=== PATIENT | male | born 1980 | race African-American/Black ===

== ENCOUNTER 2020-03-10 16:29 | Inpatient (IN) | payer OTHER ==
[~2020-03-10] VITALS: Ht 175.3 cm; Wt 87.0 kg
[~2020-03-10 16:29] MED LIST: BACLOFEN 10 MG10 MG; EXFORGE; IBUPROFEN 800800 M1 PO; MOBIC7.5 M1 PO; TRAMADOL 50 MG50 MG PO; ZPAK PO
[2020-03-10 16:31] VITALS: BP 218/143
[2020-03-10 17:10] LABS: ABSOLUTE NEUTROPHILS 5.8 thou/uL (1.4-8.2); BASOPHILS 0.7 % (0.0-2.0); EOSINOPHILS 3.5 % (0.0-3.0); HEMATOCRIT 42.9 % (42.0-52.0); HEMOGLOBIN 14.3 gm/dL (14.0-18.0); LYMPHOCYTES 29.9 % (24.0-44.0); MCH 30.6 pg (26.0-34.0); MCHC 33.3 g/dL (28.0-37.0); MONOCYTES 4.5 % (1.0-8.0); PLATELET COUNT 241 thou/uL (150-400); POLYS 61.4 % (36.0-66.0); RBC 4.67 mil/uL (4.50-6.00); WBC 9.5 thou/uL (4.0-11.0)
[2020-03-10 17:13] LABS: CALCIUM 9.5 mg/dL (8.5-10.1); CREATININE 1.4 mg/dL (0.7-1.3); POTASSIUM 4.1 mmol/L (3.5-5.1)
[2020-03-10 17:24] LABS: ALBUMIN 3.7 g/dL (3.4-5.0); TOTAL BILIRUBIN 0.3 mg/dL (0.2-1.0); TOTAL PROTEIN 7.6 g/dL (6.4-8.2); TROPONIN-I 0.45 ng/mL (<0.06)
[2020-03-10 17:32] LABS: URINE BILIRUBIN NEGATIVE (Negative); URINE BLOOD TRACE (Negative); URINE CLARITY CLEAR; URINE COLOR YELLOW; URINE GLUCOSE-RANDOM* NEGATIVE (Negative); URINE KETONES NEGATIVE (Negative); URINE LEUKOCYTES-REFLEX NEGATIVE (Negative); URINE NITRITE-REFLEX NEGATIVE (Negative); URINE PROTEIN (DIPSTICK) NEGATIVE (Negative); URINE SPECIFIC GRAVITY 1.015 (1.005-1.035)
[2020-03-10 17:43] LABS: AMP/METHAMP Negative (Negative); BARBITURATES Negative (Negative); BENZODIAZEPINES Negative (Negative); COCAINE Negative (Negative); METHADONE POSITIVE (Negative); OPIATES POSITIVE (Negative); PCP Negative (Negative)
[2020-03-10] MEDS ORDERED: LISINOPRIL10 MG PO (17:47)
[2020-03-10] MEDS ORDERED: OXYCODONE HCL E10 MG PO (17:47)
[2020-03-10] MEDS ORDERED: AMLODIPINE BESY10 MG PO (17:48)
[2020-03-10] MEDS ORDERED: CARVEDILOL12.5 MG PO (17:48)
[2020-03-10] MEDS ORDERED: HYDROCHLOROTHIA25 M2 PO (17:48)
[2020-03-10 21:22] LABS: CHOLESTEROL 176 mg/dL (<200); HDL CHOLESTEROL 35 mg/dL (>40); LDL CHOLESTEROL 119 mg/dL (<100); TRIGLYCERIDE 113 mg/dL (<150); VLDL 23 mg/dL (<40)
[2020-03-11 00:07] VITALS: BP 123/79
[2020-03-11 00:50] VITALS: BP 142/90
[2020-03-11 01:15] VITALS: BP 150/92
--- NOTE | 2020-03-11 03:15 | NUR ---
PT ADMITTED INTO THE UNIT WITH C/O FLANK PAIN RIGHT AND LEFT AND HYPERTENSIVE CRISIS.PT IS A/O X4.PT IS UP AD JULIO.PT IS ON TELE WITH NSR.PT DENIED N/V/D AND HAD AN ELEVATED TROPONIN.IV ACCESS ON RT AND LT AC AND HAS NS AT 75CC/HR.PT HAS A HISTORY OF KIDNEY STONES.PT ON BP MEDICATIONS AND PAIN MED.PT REFUSED MORPHINE THAT IT DOOESNT RELIEVE HIS PAIN.WILL CONTINUIE TO MONITOR PER POC
[2020-03-11 05:28] LABS: HEMOGLOBIN 13.1 gm/dL (14.0-18.0); MCH 30.1 pg (26.0-34.0); MCHC 32.7 g/dL (28.0-37.0); RBC 4.35 mil/uL (4.50-6.00); RDW 16.1 % (10.5-14.5); WBC 8.7 thou/uL (4.0-11.0)
[2020-03-11 05:53] LABS: CALCIUM 9.5 mg/dL (8.5-10.1); CREATININE 1.3 mg/dL (0.7-1.3); MAGNESIUM 2.1 mg/dL (1.8-2.4); POTASSIUM 4.4 mmol/L (3.5-5.1)
[2020-03-11 07:36] VITALS: BP 135/81
--- NOTE | 2020-03-11 07:38 | EKG ---
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1980 Requested By: Natalie Cox Order Number: [id number] MD: Kirk Ashby Measurements Intervals [place] Rate: 90 P: 70 AK: 141 QRS: 105 QRSD: 89 T: -62 QT: 385 QTc: 471 Interpretive Statements Sinus rhythm LAE, consider biatrial enlargement Abnormal T, consider ischemia, lateral leads No previous ECG available for comparison Electronically Signed On 03-11-2020 7:37:56 PARIMUTUEL CLERK by Kirk Ashby [email or web address] <ELECTRONICALLY SIGNED> By: Kirk Ashby MD, FACC 03/11/20 0737 1752 175 Kirk Ashby MD, [facility] /EPI
--- NOTE | 2020-03-11 09:03 | EKG ---
[facility] [place] [address] ELECTROCARDIOGRAM REPORT Name: ANNAMARIA DOBBS Room #: 456-P ADM IN M.R.#: [id number] Admission: 03/10/20 Attend Phys: Carol Sepulveda MD Discharge: Date of : 80 Report #: [id number] THIS REPORT FOR: cc: Audi Pringle Sr, MD, Otis S Sr MD Lundgren, Craig H. MD [facility] ~ THIS REPORT FOR: //name// [facility] Test Date: 2020-03-11 Test Time: 08:14:16 Pat Name: ANNAMARIA DOBBS Department: Room: 456 P Gender: M Wardsperson: HARMAN : 1980 Requested By: Isabela Wilhelm Order Number: [id number] MD: Chase Gautam Measurements Intervals [place] Rate: 68 P: 72 GA: 146 QRS: 108 QRSD: 94 T: -65 QT: 445 QTc: 474 Interpretive Statements Sinus rhythm Probable left atrial enlargement Right axis deviation Abnormal R-wave progression, late transition T wave abnormality, consider lateral ischemia Compared to ECG 03/10/2020 17:52:29 No significant change was found Electronically Signed On 03-11-2020 9:03:21 MANAGER TRANSMISSION by Chase Gautam [email or web address] <ELECTRONICALLY SIGNED> By: Chase Gautam MD, FACC 03/11/20902 3 3 Chase Gautam MD, FAC /EPI
--- NOTE | 2020-03-11 14:19 | NUR ---
Received awake on bed. Due medications given as prescribed, able to swallow meds w/o difficulty. On room air. Vital signs stable. A+Ox4. Vital signs stable. On telemetry; no complains and signs of chest pain, crushing sensation and heaviness. On heart healthy diet- tolerating well; no nausea, no vomiting and no abdominal pain noted. Continent of bowel and bladder, able to go to the toilet independently. With SL at L AC; with NS at 75cc/hr, infusing well at R AC; dressing C/D/I. Complained of flank pain, due PRN pain meds given as prescribed. To continue monitoring patient. Visited by relative today, update given.
--- NOTE | 2020-03-11 15:32 | 2DMMODE ---
[facility] [place] [address] 2 D/M-MODE ECHOCARDIOGRAM Name: ANNAMARIA DOBBS Room #: 456-P ADM IN M.R.#: [id number] Admission: 03/10/20 Attend Phys: Carol Sepulveda MD Discharge: Date of : 80 Report #: [id number] THIS REPORT FOR: cc: Audi Pringle Sr, MD, Otis S Sr MD Lundgren, Craig H. MD [facility] ~ APPROVED REPORT Study performed: 03/11/2020 13:01:26 EXAM: Comprehensive 2D, Doppler, and color-flow Echocardiogram Patient Location: Bedside Room #: 456 BSA: 1.98 HR: 64 bpm BP: 135/81 mmHg Rhythm: NSR Other Information Study Quality: Good Indications HTN, elevated troponin, flank pain. 2D Dimensions RVDd: 41.71 mm IVSd: 15.69 (7-11mm) LVOT Diam: 20.72 (18-24mm) LVDd: 47.13 mm PWd: 14.00 (7-11mm) LVDs: 31.65 (25-40mm) Aortic Root: 26.95 mm Volumes Left Atrial Volume (Systole) Single Plane 4CH: 57.12 mL Single Plane 2CH: 69.53 mL LA ESV Index: 34.00 mL/m2 Aortic Valve AoV Peak Garrett.: 1.21 m/s AO Peak Gr.: 5.83 mmHg LVOT Max P.33 mmHg LVOT Max V: 1.04 m/s CELI Vmax: 2.90 cm2 [facility] [address] [place] [address] 2 D/M-MODE ECHOCARDIOGRAM Name: ANNAMARIA DOBBS Room #: 456-P [facility] IN ..#: [id number] Admission: 03/10/20 Attend Phys: Carol Sepulveda MD Discharge: Date of : 80 Report #: [id number] Mitral Valve E/A Ratio: 1.4 MV Decel. Time: 185.84 ms MV E Max Garrett.: 0.98 m/s MV A Garrett.: 0.70 m/s MV PHT: 53.90 ms IVRT: 129.18 ms Pulmonary Valve PV Peak Garrett.: 1.19 m/s PV Peak Gr.: 5.62 mmHg Pulmonary Vein P Vein S: 0.74 m/s P Vein A: 0.31 m/s P Vein D: 0.42 m/s P Vein A Dur.: 175.3 msec P Vein S/D Ratio: 1.76 Tricuspid Valve TR Peak Garrett.: 2.23 m/s RAP Estimate: 5.00 mmHg TR Peak Gr.: 20.00 mmHg PA Pressure: 25.00 mmHg Left Ventricle The left ventricle is normal size. There is global hypokinesis of the left ventricle. Moderate concentric left ventricular hypertrophy. Left ventricular systolic function is mildly decreased. LVEF is 45%. Moderate diastolic dysfunction is present (pseudonormal filling). Right Ventricle The right ventricle is normal size. The right ventricular systolic function is normal. Atria Left atrium is mildly dilated. Atrial septal aneurysm. Shunting in the region of the fossa ovalis consistent with a patent foramen ovale The right atrium size is normal. Aortic Valve The aortic valve is normal in structure. Trace aortic regurgitation. There is no aortic valvular stenosis. Mitral Valve The mitral valve is normal in structure. Trace mitral regurgitation. No evidence of mitral valve stenosis. Tricuspid Valve [facility] [address] [place] [address] 2 D/M-MODE ECHOCARDIOGRAM Name: DILIAANNAMARIA Room #: 456-P [facility] IN .R.#: [id number] Admission: 03/10/20 Attend Phys: Carol Sepulveda MD Discharge: Date of : [birth year] Report #: [id number] The tricuspid valve is normal in structure. Trace tricuspid regurgitation. Estimated PAP is 25mmHg. Pulmonic Valve The pulmonary valve is normal in structure. Mild pulmonic regurgitation. Great Vessels The aortic root is normal in size. The ascending aorta is normal in size. IVC is normal in size and collapses >50% with inspiration. Pericardium There is no pericardial effusion. <Conclusion> Left ventricular systolic function is mildly decreased. There is global hypokinesis of the left ventricle. Moderate concentric left ventricular hypertrophy. Moderate diastolic dysfunction Atrial septal aneurysm. Shunting in the region of the fossa ovalis consistent with a patent foramen ovale Left atrium is mildly dilated. The aortic valve is normal in structure. Trace aortic regurgitation, no stenosis. The mitral valve is normal in structure. Trace mitral regurgitation. Trace tricuspid regurgitation. Estimated pulmonary artery pressure of 25mmHg. There is no pericardial effusion. <ELECTRONICALLY SIGNED> By: Chase Gautam MD, FACC 03/11/20 153 31 31 Chase Gautam MD, FACC /INF
--- NOTE | 2020-03-11 16:09 | NUR ---
PT ADMITTED RELATED TO FLANK PAIN,ELEVATED BP. CM REVIEWED CHART AND SPOKE WITH CARE TEAM. CM CALLED AND SPOKE WITH PT OVER THE PHONE THIS DAY. PT INDICATED HE LIVES IN A DUPLEX WITH HIS KIDS AND UNCLE. HE INDICATED NO STEPS TO ENTER AND A FULL FLIGHT INSIDE. 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 NO DME OR HH HX. CM TO FOLLOW INDICATED WITH DC PLANNING.PT HAVING AN ECHO, EKG, AND BLOOD WORK DONE.
[2020-03-11 16:48] VITALS: BP 134/91
[2020-03-11 20:05] VITALS: BP 152/95
--- NOTE | 2020-03-12 02:43 | NUR ---
PT CARE ASSUMED WITH PT IN BED WATCHING TV.PT IS UP AD JULIO AND WALKDE IN THE HALLWAY.PT C/O PAIN HAS OXYCODODNE Q4H PRN FOR PAIN MANAGEMENT.WILL CONTINUE TO MONITOR PER POC
[2020-03-12] MEDS ORDERED: BENICAR40 MG PO (08:19)
[2020-03-12 08:35] LABS: CALCIUM 9.3 mg/dL (8.5-10.1); CREATININE 1.3 mg/dL (0.7-1.3)
--- NOTE | 2020-03-12 09:23 | NUR ---
PT STATES HE FEELS SOMEWHAT THE SAME YESTERDAY. WANTS TO GET PAIN UNDER CONTROL AND IS LOOKING FORWARD TO DISCHARGING TODAY
[2020-03-12] MEDS ORDERED: HYDRALAZINE 10M10 MG PO (09:25)
--- NOTE | 2020-03-12 10:00 | NUR ---
I have reviewed the student documentation.
[2020-03-12 10:28] VITALS: BP 152/98
[2020-03-12 10:32] VITALS: BP 152/98
--- NOTE | 2020-03-12 11:57 | NUR ---
Assumed pt care at 7am.Assessment completed vss but elevated bp noted. Different kind of po bp meds given as ordered with pain med.Dr Flores here,dc order noted.Dc summary compile and reviewed with pt.Rx sent to pt's pharmacy via fax.At 1045,pt dc home in accompanied by his family.
== END 2020-03-12 10:44 | disposition home or self-care (01) | DRG 281 ==
LOC: ER 16:29 → 4W 20:27 → EROBS 20:27 → 4W 03-11 00:49
PROVIDERS: Nurse Practitioner Adult Health; Nurse Practitioner Family; Physician Assistant; ADMIT Hospitalist; ATTEND Hospitalist
DX: I21.4 Non-ST elevation (NSTEMI) myocardial infarction (principal); M62.82 Rhabdomyolysis; N17.9 Acute kidney failure, unspecified; G43.909 Migraine, unspecified, not intractable, without status migrainosus; I10 Essential (primary) hypertension; I16.0 Hypertensive urgency; I12.9 Hypertensive chronic kidney disease with stage 1 through stage 4 chronic kidney disease, or unspecified chronic kidney disease; G89.29 Other chronic pain; F17.210 Nicotine dependence, cigarettes, uncomplicated; N18.9 Chronic kidney disease, unspecified; Z71.6 Tobacco abuse counseling; Z87.442 Personal history of urinary calculi; Z88.8 Allergy status to other drugs, medicaments and biological substances; Z23 Encounter for immunization
CPT/HCPCS: 10045

== ENCOUNTER → 2020-04-29 | Outpatient (CLI) | payer OTHER ==
[~2020-04-29] MED LIST changes: +AMLODIPINE BESY10 MG PO; +BENICAR40 MG PO; +CARVEDILOL12.5 MG PO; +HYDRALAZINE 10M10 MG PO; +HYDROCHLOROTHIA25 M2 PO; +LISINOPRIL10 MG PO; +OXYCODONE HCL E10 MG PO
--- NOTE | 2020-04-29 12:13 | 2DMMODE ---
[facility] [place] [address] 2 D/M-MODE ECHOCARDIOGRAM Name: DILIAANNAMARIA JR Room #: REG [facility]#: [id number] Admission: 04/29/20 Attend Phys: Ratnesh. Amado MD Discharge: Date of : 80 Report #: [id number] THIS REPORT FOR: cc: Audi Pringle Sr, MD, Otis S Sr MD Santiago, Patrick MD [facility] ~ APPROVED REPORT Study performed: 04/29/2020 10:37:23 EXAM: Comprehensive 2D, Doppler, and color-flow Echocardiogram Patient Location: Out-Patient Status: routine BSA: 2.00 HR: 55 bpm BP: 130/76 mmHg Rhythm: NSR Other Information Study Quality: Good Indications Hypertension/HDD 2D Dimensions IVSd: 14.72 (7-11mm) LVOT Diam: 22.23 (18-24mm) LVDd: 42.84 mm PWd: 16.44 (7-11mm) Ascending Ao: 22.49 (22-36mm) LVDs: 29.94 (25-40mm) Left Atrium: 34.59 (27-40mm) Aortic Root: 30.19 mm IVC: 1.70 mm Volumes Left Atrial Volume (Systole) Single Plane 4CH: 25.23 mL Single Plane 2CH: 46.13 mL LA ESV Index: 18.50 mL/m2 Aortic Valve AoV Peak Garrett.: 1.09 m/s AO Peak Gr.: 4.80 mmHg LVOT Max P.51 mmHg LVOT Max V: 0.94 m/s CELI Vmax: 3.32 cm2 [facility] [address] [place] [address] 2 D/M-MODE ECHOCARDIOGRAM Name: ANNAMARIA DOBBS JR Room #: REG [facility]#: [id number] Admission: 04/29/20 Attend Phys: Ratnesh. Amado MD Discharge: Date of : 80 Report #: [id number] Mitral Valve E/A Ratio: 1.2 MV Decel. Time: 247.75 ms MV E Max Garrett.: 0.78 m/s MV A Garrett.: 0.63 m/s MV PHT: 71.85 ms IVRT: 92.27 ms Pulmonary Valve PV Peak Garrett.: 1.10 m/s PV Peak Gr.: 4.87 mmHg Pulmonary Vein P Vein S: 0.49 m/s P Vein A: 0.31 m/s P Vein D: 0.40 m/s P Vein A Dur.: 101.5 msec P Vein S/D Ratio: 1.23 Left Ventricle The left ventricle is normal size. Moderate concentric left ventricular hypertrophy. Left ventricular systolic function is mildly decreased. LVEF is 45-50%. Right Ventricle The right ventricle is normal size. The right ventricular systolic function is normal. Atria Left atrium is dilated. Small PFO is noted. The right atrium size is normal. Aortic Valve The aortic valve is normal in structure. No aortic regurgitation is present. There is no aortic valvular stenosis. Mitral Valve The mitral valve is normal in structure. Trace mitral regurgitation. No evidence of mitral valve stenosis. Tricuspid Valve The tricuspid valve is normal in structure. . There is no tricuspid valve regurgitation noted. Pulmonic Valve The pulmonary valve is normal in structure. Mild pulmonic regurgitation. Great Vessels [facility] [place] [address] 2 D/M-MODE ECHOCARDIOGRAM Name: ANNAMARIA DOBBS Room #: [facility]#: [id number] Admission: 04/29/20 Attend Phys: Ratnesh. Amado MD Discharge: Date of : 80 Report #: [id number] The aortic root is normal in size. IVC is normal in size and collapses >50% with inspiration. Pericardium There is no pericardial effusion. <Conclusion> Normal left ventricular size Mild-Moderate concentric hypertrophy Ejection fraction 45%, mild global hypokinesis Normal right ventricular size/function Mildly dilated left atrium Color-flow Doppler study was performed of the aortic/mitral/tricuspid/pulmonary valve Trace tricuspid valve insufficiency No tricuspid valve insufficiency No pericardial effusion <ELECTRONICALLY SIGNED> By: Kirk Ashby MD, [facility] 04/29/20 1212 11 1212 Kirk Ashby MD, FACC /INF
== END ==
LOC: CV 10:06
PROVIDERS: ATTEND Internal Medicine
DX: I08.8 Other rheumatic multiple valve diseases (principal); R93.1 Abnormal findings on diagnostic imaging of heart and coronary circulation

== ENCOUNTER 2021-01-15 20:12 | Emergency (ER) | payer OTHER ==
[~2021-01-15] VITALS: Ht 175.3 cm; Wt 81.7 kg
[2021-01-15 20:16] VITALS: BP 189/117
[2021-01-15] MEDS ORDERED: LOSARTAN POTAS100 MG PO (20:20)
[2021-01-15] MEDS ORDERED: CELECOXIB200 MG PO (20:21)
[2021-01-15] MEDS ORDERED: MEDROLDOSEPACK PO (20:37)
== END 2021-01-15 20:49 | disposition home or self-care (01) ==
LOC: ER 20:12
DX: S39.012A Strain of muscle, fascia and tendon of lower back, initial encounter (principal); I10 Essential (primary) hypertension; G43.909 Migraine, unspecified, not intractable, without status migrainosus; F17.210 Nicotine dependence, cigarettes, uncomplicated; Z87.442 Personal history of urinary calculi; Z79.899 Other long term (current) drug therapy; Z79.891 Long term (current) use of opiate analgesic; Z88.8 Allergy status to other drugs, medicaments and biological substances; X58.XXXA Exposure to other specified factors, initial encounter; Y93.89 Activity, other specified; Y92.89 Other specified places as the place of occurrence of the external cause; Y99.8 Other external cause status

== ENCOUNTER 2021-05-19 10:33 | Observation (INO) | payer OTHER ==
[~2021-05-19] VITALS: Ht 190 cm; Wt 3.6 kg
[~2021-05-19 10:33] MED LIST changes: +CELECOXIB200 MG PO; +LOSARTAN POTAS100 MG PO; +MEDROLDOSEPACK PO
[2021-05-19 10:38] VITALS: BP 199/133
[2021-05-19 11:15] LABS: HEMATOCRIT 45.2 % (42.0-52.0); HEMOGLOBIN 14.8 gm/dL (14.0-18.0); MCH 29.9 pg (26.0-34.0); MCHC 32.7 g/dL (28.0-37.0); MCV 91.4 fL (80.0-100.0); RBC 4.94 mil/uL (4.50-6.00); RDW 16.1 % (10.5-14.5); WBC 7.8 thou/uL (4.0-11.0)
[2021-05-19 11:21] LABS: CALCIUM 9.5 mg/dL (8.5-10.1); CREATININE 1.3 mg/dL (0.7-1.3)
[2021-05-19 11:31] LABS: ALBUMIN 3.9 g/dL (3.4-5.0); TOTAL BILIRUBIN 0.6 mg/dL (0.2-1.0); TOTAL PROTEIN 8.1 g/dL (6.4-8.2)
--- NOTE | 2021-05-19 12:26 | EKG ---
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1980 Requested By: Gage Lamb Order Number: [id number] MD: Kirk Ashby Measurements Intervals [place] Rate: 82 P: 74 ID: 145 QRS: 91 QRSD: 90 T: -68 QT: 374 QTc: 437 Interpretive Statements Sinus rhythm Multiple ventricular premature complexes LAE, consider biatrial enlargement J Point elevation precordial leads Borderline right axis deviation Left ventricular hypertrophy Nonspecific T abnormalities, inferior leads Compared to ECG 03/11/2020 08:14:16 Ventricular premature complex(es) now present Left ventricular hypertrophy now present ST (T wave) deviation now present Electronically Signed On 05-19-2021 12:26:38 SHOVE UP by Kirk Ashby [email or web address] <ELECTRONICALLY SIGNED> By: Kirk Ashby MD, FACC 05/19/21 1226 1045 1045 Kirk Ashby MD, [facility] /EPI
--- NOTE | 2021-05-19 13:07 | NUR ---
[facility] CALLS AND UPDATES THAT PT WILL HAVE A STRESS TEST TOMORROW AM. STATES PT SHOULD BE NPO AFTER MIDNIGHT AND HAVE NO BP MEDS AFTER MIDNIGHT AND UNTIL AFTER TEST. STATES THAT THE STRESS TEST WILL TAKE APPROX 2.5 HOURS TO UPDATE PT/FAMILY/STAFF
[2021-05-19 13:28] LABS: APTT 28.8 Seconds (24.5-32.8); INR 1.1; PROTIME 11.9 Seconds (10.5-12.1)
--- NOTE | 2021-05-19 15:10 | 2DMMODE ---
[facility] [place] [address] 2 D/M-MODE ECHOCARDIOGRAM Name: ANNAMARIA DOBBS Room #: 170-11 ADM IN .R.#: [id number] Admission: 05/19/21 Attend Phys: Misha Espinosa MD Discharge: Date of : [birth year] Report #: [id number] THIS REPORT FOR: cc: Audi Pringle Sr, MD, Otis S Sr MD Lammoglia, Francisco J. MD ~ APPROVED REPORT Study performed: 05/19/2021 13:15:19 EXAM: Comprehensive 2D, Doppler, and color-flow Echocardiogram Patient Location: ER Status: routine BSA: 2.00 HR: 61 bpm BP: 158/104 mmHg Rhythm: NSR/Frequent PVCs Other Information Study Quality: Good Indications Chest pain, HTN, elevated troponin. Hx: Cardiomyopathy (45-50% in 2020). 2D Dimensions RVDd: 36.58 mm IVSd: 14.23 (7-11mm) LVOT Diam: 21.41 (18-24mm) LVDd: 52.32 mm PWd: 14.05 (7-11mm) Ascending Ao: 26.87 (22-36mm) LVDs: 39.93 (25-40mm) Left Atrium: 34.73 (27-40mm) Volumes Left Atrial Volume (Systole) Single Plane 4CH: 82.92 mL Single Plane 2CH: 71.12 mL LA ESV Index: 43.00 mL/m2 Aortic Valve AoV Peak Garrett.: 1.21 m/s AO Peak Gr.: 5.86 mmHg LVOT Max P.33 mmHg LVOT Max V: 0.91 m/s CELI Vmax: 2.72 cm2 [facility] [place] [address] 2 D/M-MODE ECHOCARDIOGRAM Name: ANNAMARIA DOBBS Room #: [address] [place] [address] [place] [facility]#: [id number] Admission: 05/19/21 Attend Phys: Misha Espinosa MD Discharge: Date of : 80 Report #: [id number] Mitral Valve E/A Ratio: 0.9 MV Decel. Time: 213.91 ms MV E Max Garrett.: 0.83 m/s MV A Garrett.: 0.97 m/s MV PHT: 62.03 ms IVRT: 106.11 ms Pulmonary Valve PV Peak Garrett.: 1.16 m/s PV Peak Gr.: 5.41 mmHg Pulmonary Vein P Vein S: 0.48 m/s P Vein D: 0.30 m/s P Vein S/D Ratio: 1.60 Tricuspid Valve TR Peak Garrett.: 2.55 m/s RAP Estimate: 5.00 mmHg TR Peak Gr.: 26.05 mmHg PA Pressure: 31.00 mmHg Left Ventricle The left ventricle is normal size. Regional wall motion abnormalities are noted. Moderate concentric left ventricular hypertrophy. Left ventricular systolic function is severely decreased. LVEF is 30%. Mild diastolic dysfunction is present (impaired relaxation pattern). Right Ventricle The right ventricle is normal size. The right ventricular systolic function is normal. Atria Left atrium is moderately dilated. The right atrium size is normal. Small PFO noted with color doppler. Aortic Valve The aortic valve is normal in structure. No aortic regurgitation is present. There is no aortic valvular stenosis. Mitral Valve The mitral valve is normal in structure. Trace to mild mitral regurgitation. Tricuspid Valve [facility] [place] [address] 2 D/M-MODE ECHOCARDIOGRAM Name: ANNAMARIA DOBBS Room #: 170-11 ADM IN .R.#: [id number] Admission: 05/19/21 Attend Phys: Misha Espinosa MD Discharge: Date of : 80 Report #: [id number] The tricuspid valve is normal in structure. Trace tricuspid regurgitation. Estimated PAP is 31mmHg. Pulmonic Valve The pulmonary valve is normal in structure. Mild pulmonic regurgitation. Great Vessels The aortic root is normal in size. The ascending aorta is normal in size. IVC is normal in size and collapses >50% with inspiration. Pericardium There is no pericardial effusion. <Conclusion> The left ventricle is normal size. Moderate concentric left ventricular hypertrophy. Regional wall motion abnormalities are noted. LVEF is 30-40%. The right ventricle is normal size. Left atrium is moderately dilated. The right atrium size is normal. Small PFO noted with color doppler. The aortic valve is normal in structure. The mitral valve is normal in structure. Trace to mild mitral regurgitation. The tricuspid valve is normal in structure. Trace tricuspid regurgitation. Estimated PAP is 31mmHg. The pulmonary valve is normal in structure. Mild pulmonic regurgitation. The aortic root is normal in size. There is no pericardial effusion. <ELECTRONICALLY SIGNED> By: Suresh Barriga MD 05/19/211509 09 09 Suresh Barriga MD /INF
[2021-05-19] MEDS ORDERED: PERCOCET 10-321 EACH PO (15:37)
[2021-05-19 16:31] VITALS: BP 152/97
[2021-05-19 16:38] LABS: CHOLESTEROL 135 mg/dL (<200); HDL CHOLESTEROL 34 mg/dL (>40); LDL CHOLESTEROL 88 mg/dL (<100); TRIGLYCERIDE 66 mg/dL (<150); VLDL 13 mg/dL (<40)
[2021-05-19 19:35] VITALS: BP 152/91
[2021-05-19 20:09] VITALS: BP 152/91
[2021-05-19 20:30] VITALS: BP 132/94
[2021-05-19 22:00] VITALS: BP 129/85
[2021-05-20] VITALS (13 sets, daily range): BP systolic 101–149; BP diastolic 63–101
[2021-05-20 06:12] LABS: HEMATOCRIT 41.2 % (42.0-52.0); HEMOGLOBIN 13.7 gm/dL (14.0-18.0); MCHC 33.2 g/dL (28.0-37.0); MCV 90.4 fL (80.0-100.0); RBC 4.56 mil/uL (4.50-6.00); WBC 6.1 thou/uL (4.0-11.0)
[2021-05-20 06:15] LABS: CALCIUM 8.7 mg/dL (8.5-10.1); CREATININE 1.4 mg/dL (0.7-1.3); POTASSIUM 3.9 mmol/L (3.5-5.1)
--- NOTE | 2021-05-20 09:09 | NUR ---
PT ADMITTED TO MRPO418 FROM ER, PRN PAIN MEDS GIVEN FOR CHRONIC BACK PAIN THROUGH THE NOC, VSS, HEPARING AND NTG INFUSING, NPO AFTER MNOC FOR STRESS TEST, C/O OF AND NAUSEA IV ZOFRAN GIVEN AND THEN TOLERATED LEMON ENTERPRISE SODA, BP CON'T TO DECREASE. REPORT GIVEN TO NEXT SHIFT TO CON'T TO MONITOR PER PPOC
--- NOTE | 2021-05-20 19:04 | NUR ---
Nuclear cardiac stress test was canceled; Pt went down to veterinary laboratory diagnostician for procedure; no interventions; arteries were reported to be un-occluded. Hospitalist made aware. Plan is for cardiology to sign off and then pt will be discharged. Bedrest ended at 1715. Groin site is C/D/I. Pt reported having numbness in right thigh and knee; groin site and pulses assessed; groin site intact and strong pulses (2/2). After walking pt reported that "it feels better". No current concerns. Continue to monitor.
--- NOTE | 2021-05-20 19:45 | NUR ---
Pt has been having frequent PVC; Pt also had trigeminy; Cardiology is aware.
--- NOTE | 2021-05-21 04:20 | NUR ---
NURSING NOTE: SHIFT SUMMARY. PT ALERT AND ORIENTED X4. MOVES ALL EXTREMITIES AND FOLLOWS COMMAND. RIGHT GROIN SITE DRESSING C/D/I. SITE SOFT TO PALP. C/O PAIN IN BACK X1 TIME. PAIN MEDICATION GIVEN ORDERED AND IS EFFECTIVE PER PATIENT. CURRENTLY RESTING WITH EYES CLOSED, RESP EVEN AND NON LABORED. ALL VS AND ASSESSMENTS CHARTED, WILL CONTINUE TO MONITOR.
[2021-05-21 04:45] VITALS: BP 116/83
[2021-05-21 09:49] VITALS: BP 130/89
[2021-05-21] MEDS ORDERED: SPIRONOLACTONE25 M1 PO (10:14)
[2021-05-21] MEDS ORDERED: BENICAR40 MG PO (10:14)
[2021-05-21] MEDS ORDERED: ASA81BEC PO (10:14)
--- NOTE | 2021-05-21 10:31 | NUR ---
DISCONTINUE IV AND TELE. PT UNDERSTANDS ALL FOLLOW UP OREDERS. WILL DISCAHRGE TO HOME.
[2021-05-21 10:32] VITALS: BP 130/89
--- NOTE | 2021-05-29 01:18 | CATHLAB ---
[facility] J[address] [email or web address] [address] INVASIVE PROCEDURE REPORT Name: ANNAMARIA DOBBS Ed Room #: 214-P [facility] Mario M.R.#: [id number] Admission: 05/19/21 Attend Phys: Misha Espinosa MD Discharge: 05/21/21 Date of : 80 Report #: [id number] THIS REPORT FOR: cc: Audi Pringle Sr, MD, Otis S Sr MD Lammoglia, Francisco J. 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 A PINNACLE 4FR Sheath #[id number] sheath was inserted into the RFA^. Coronary angiography was performed using coronary diagnostic catheters. The right coronary system was accessed and visualized with a JR4 catheter. The left coronary system was accessed and visualized with a JL4 catheter. The left ventricle was accessed and visualized with a ANGLED PIGTAIL catheter. Hemostasis was obtained with manual pressure following sheath removal without any complications. The patient tolerated the procedure well and there were no complications associated with the procedure. There was no hematoma. Intraoperative Conscious Sedation Sedation start time: 13:26 Case end Time: 13:52 [place] [address] [place] [address] INVASIVE PROCEDURE REPORT Name: ANNAMARIA DOBBS Room #: 214-P [facility]..#: [id number] Admission: 05/19/21 Attend Phys: Misha Espinosa MD Discharge: 05/21/21 Date of : 80 Report #: [id number] Versed 2 mg Fluoro Time: 3.80 minutes Dose: DAP 4787.10 cGycm2 780 mGy Contrast Type and Amount: Omnipaque 50 ml Coronary Angiography The patient's coronary anatomy is right dominant. Diagnostic Cath Left Main Moderate to large caliber vessel of normal origin bifurcates into left anterior descending and left circumflex. It is free of significant lesions. LAD Small to moderate type II vessel that tapers towards apex. Luminal irregularities are present without flow limiting lesions Diagonal 1 diminuitive caliber without significant lesions Diagonal 2 small caliber vessel free of significant lesions Circumflex Large caliber nondominant vessel gives rise to a tiny first branch vs a ramus intermedius. It contnues in the AV groove giving rise to three lateral wall marginal branches the last of which is quite small. luminal irregularities of 35% or less is noted OM1 diminuitive OM2 small caliber without significant stenosis OM3 small caliber with luminal irreg noted Right Coronary Moderate caliber dominant vessl of normal origin without significant lesions coursing to the crux of the heart where a small string like pda arises. R PDA diminuitive string like vessel which is diffusely diseased Left Ventriculography Left Ventriculography was not performed. Hemodynamics The aortic pressure is 119/72 mmHg with a mean of 50 mmHg. The left ventricular pressure is 116/9 mmHg with a mean of mmHg. The left ventricular end diastolic pressure is 30 mmHg. Conclusion 1. Coronaruy artery disease with mild left system and high grade diminuitive pda 2. Normal hemodynamics [facility] [address] [place] [address] INVASIVE PROCEDURE REPORT Name: ANNAMARIA DOBBS Room #: 214-P [facility] [place] [facility]#: [id number] Admission: 05/19/21 Attend Phys: Misha Espinosa MD Discharge: 05/21/21 Date of : 80 Report #: [id number] Recommendations Cardiac Risk Reduction Program Aggressive Medical Therapy <ELECTRONICALLY SIGNED> By: Suresh Barriga MD 05/29/21117 7 7 Suresh Barriga MD /INF
== END 2021-05-21 12:22 | disposition home or self-care (01) ==
LOC: ER 10:33 → 2N 12:38 → EROBS 12:38 → 2N 20:10
PROVIDERS: Physician Assistant; ADMIT Hospitalist; ATTEND Hospitalist
DX: I25.10 Atherosclerotic heart disease of native coronary artery without angina pectoris (principal); I16.0 Hypertensive urgency; Z20.822 Contact with and (suspected) exposure to COVID-19; R00.2 Palpitations; M54.9 Dorsalgia, unspecified; G43.909 Migraine, unspecified, not intractable, without status migrainosus; G89.4 Chronic pain syndrome; R77.8 Other specified abnormalities of plasma proteins; F17.210 Nicotine dependence, cigarettes, uncomplicated; Z79.899 Other long term (current) drug therapy; Z98.890 Other specified postprocedural states; Z88.8 Allergy status to other drugs, medicaments and biological substances; Z87.442 Personal history of urinary calculi; Z85.6 Personal history of leukemia
CPT/HCPCS: 10081

== ENCOUNTER → 2021-05-29 | Outpatient (CLI) | payer OTHER ==
[~2021-05-29] MED LIST changes: +ASA81BEC PO; +PERCOCET 10-321 EACH PO; +SPIRONOLACTONE25 M1 PO
== END ==
LOC: SJCVC 10:26
PROVIDERS: ATTEND Internal Medicine
DX: R94.31 Abnormal electrocardiogram [ECG] [EKG] (principal); I42.0 Dilated cardiomyopathy; I50.20 Unspecified systolic (congestive) heart failure; M15.9 Polyosteoarthritis, unspecified; I16.0 Hypertensive urgency; F17.210 Nicotine dependence, cigarettes, uncomplicated; Z88.8 Allergy status to other drugs, medicaments and biological substances; Z79.82 Long term (current) use of aspirin; Z79.899 Other long term (current) drug therapy; Z95.810 Presence of automatic (implantable) cardiac defibrillator